=== PATIENT | male | born 1955 | race African-American/Black ===

== ENCOUNTER → 2018-01-03 | Outpatient (CLI) | payer OTHER ==
[~2018-01-03] MED LIST: ACYC-65 PO; AMLO10TA3 PO; AMOX875T PO; ASPITAB47 PO; CALC625T PO; CLR10 PO; DOCU-94 PO; GLC/500 PO; GLIP10TA9 PO; IBUP600T44 PO; LISI-461 PO; OPTIRAY 320 IV PRN; POLYSOL OP; SALI0.6510 NAE
--- NOTE | 2018-01-03 17:29 | DIAGNOSTIC IMAGING REPORT ---
CT OF THE CHEST WITH IV CONTRAST CLINICAL HISTORY: Adenopathy COMPARISON STUDY: No previous studies for comparison. TECHNIQUE: Following the IV administration of 26 mL of Optiray-320, CT of the thorax was performed from the thoracic inlet to the lung bases. Images are reviewed in the axial, sagittal, and coronal planes. IV access was difficult. The IV team was unable to obtain an adequate intravenous site. Only 26 cc of contrast was administered before infiltration. A dose lowering technique was utilized adhering to the principles of ALARA. CT DOSE: FINDINGS: Thyroid: There is an 8 mm right lobe thyroid nodule Thoracic aorta: The thoracic aorta is normal in course and caliber, noting standard 3-vessel arch anatomy. No aneurysm or dissection is seen. Pulmonary vasculature: The pulmonary trunk is normal in caliber. There are no central filling defects identified to suggest pulmonary embolus. Note that this examination was not protocoled for the evaluation of pulmonary emboli. HEART: The heart is normal in size and configuration, without pericardial effusion. Lungs and pleural spaces: There is pulmonary emphysema. There are no pleural effusions. There is no focal pulmonary consolidation. Addition to a few scattered micronodules, there is a 4 mm solid right middle lobe pulmonary nodule. This is visualized in image #[id number]. Mediastinum: There is no mediastinal lymphadenopathy. Madelyn: There is no pathologic hilar adenopathy given the limitations of the examination which approaches a nonenhanced study Axilla: Clear. Upper abdomen: Partially visualized upper abdominal viscera is within normal limits. Skeletal structures: There are no lytic or blastic osseous lesions. IMPRESSION: 1. No evidence of pathologic adenopathy 2. No evidence of focal pulmonary consolidation 3. 4 mm right middle lobe pulmonary nodule. Current recommendations indicate an optional 12 month follow-up high in a risk patient. 4. Emphysema Electronically signed by: Frerdick Mauricio M.D. 01/03/2018 5:28 PM Dictated Date/Time: 01/03/2018 5:20 PM
--- NOTE | 2018-01-03 17:29 | DIAGNOSTIC IMAGING REPORT ---
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 COMPARISON: CT chest of same day TECHNIQUE: Multiple axial CT images of the soft tissues of the neck were obtained with the use of IV contrast. A dose lowering technique was used consistent with the principals of KATHY. FINDINGS: The nasopharynx, oral pharynx and hypopharynx are patent. The epiglottis and aryepiglottic folds are unremarkable. Minimal secretions noted within piriform sinuses bilaterally, right greater than left. Glottis and subglottic airway appear unremarkable. Thyroid appears homogeneous without nodule. The parotid and submandibular glands are within normal limits. There are no pathologically enlarged lymph nodes identified within the imaged upper mediastinum. 6 x 6 mm left supraclavicular lymph node is normal in size. Normal-appearing nonenlarged right supraclavicular lymph nodes are also present. There are nonenlarged bilateral cervical chain lymph nodes which are likely physiologic. Prominent nonenlarged level 1 lymph node measures 9 x 7 mm on the left, image 146 series 6. Nonenlarged level 2 lymph nodes are present bilaterally. No pathologically enlarged lymph nodes by CT size criteria. Orbits and soft tissues are unremarkable. Mastoid air cells and middle ear cavities are clear. Paranasal sinuses are also clear. Multilevel degenerative changes about the cervical spine. Emphysema. No acute process of the imaged intracranial structures. Mild nonspecific subcutaneous stranding about the right paraspinal tissues at the level of C2-C3. IMPRESSION: 1. Nonenlarged normal-appearing supraclavicular, submandibular and cervical chain lymph nodes are likely physiologic. No pathologically enlarged lymph nodes are identified. 2. Emphysema. 3. Mild nonspecific subcutaneous stranding about the right paraspinal tissues at the level of C2-C3, possibly posttraumatic. The above report was generated using voice recognition software. It may contain grammatical, syntax or spelling errors. Electronically signed by: Diallo De La Torre M.D. 01/03/2018 5:27 PM Dictated Date/Time: 01/03/2018 5:18 PM
== END ==
LOC: C.CTS 15:49
PROVIDERS: ATTEND Family Medicine
DX: E04.1 Nontoxic single thyroid nodule (principal)

== ENCOUNTER 2019-02-25 10:59 | Inpatient (IN) ==
--- NOTE | 2019-02-25 11:40 | XRay Report ---
SINGLE VIEW CHEST CLINICAL HISTORY: Atypical chest pain. FINDINGS: 2 AP, portable, upright chest radiographs are correlated with chest CT dated 01/08/2019. The examination is degraded by portable technique and apical lordotic positioning. The cardiomediastinal silhouette is unremarkable. There is mild bibasilar atelectasis. The lungs and pleural spaces are oth erwise clear. No pneumothorax is seen. The bony thorax is grossly intact. IMPRESSION: No active disease in the chest. Electronically signed by: Enrike Hamilton M.D. 02/25/2019 11:39 AM
[2019-02-25] MEDS ORDERED: FAMOTIDINE 20 MG TAB PO ONE (12:25)
[2019-02-25] MEDS ORDERED: GI COCKTAIL ED USE PO ONE (12:25)
[2019-02-25] MEDS ORDERED: SODIUM CHLORIDE 0.9% 500 ML IV ONE (12:56)
[2019-02-25 13:26] LABS: Albumin Level 3.1 gm/dl (3.4-5.0); BUN Creatinine Ratio 16.2 (10-20); Calcium 9.2 mg/dl (8.5-10.1); Creatinine Clr Calc Pharmacy 80.2 ml/min; Est GFR (African American) 88.1; Est GFR (Non-African American) 76.1; Phosphorus 2.6 mg/dl (2.5-4.9)
[2019-02-25 13:36] LABS: Albumin Globulin Ratio 0.7 (0.9-2); Bilirubin,Total 0.6 mg/dl (0.2-1); Globulin 4.5 gm/dl (2.5-4.0); Total Protein 7.6 gm/dl (6.4-8.2)
[2019-02-25] MEDS ORDERED: Heparin IV Low Dose *NO* Bolus IV ONE (13:50)
[2019-02-25 13:55] LABS: Basophils # (auto) 0.01 K/uL (0-0.2); Basophils % (auto) 0.1 %; Eosinophils # (auto) 0.11 K/uL (0-0.5); Eosinophils % (auto) 1.5 %; Hematocrit (blood only) 41.8 % (42-52); Hemoglobin 13.6 g/dL (14.0-18.0); Immature Granulocytes # (auto) 0.02 K/uL (0.00-0.02); Immature Granulocytes % (auto) 0.3 %; Lymphocytes # (auto) 2.54 K/uL (1.2-3.4); Lymphocytes % (auto) 34.7 %; Mean Corpuscular Hemoglobin 26.4 pg (25-34); Mean Corpuscular Hgb Conc 32.5 g/dL (32-36); Mean Platelet Volume 10.4 fL (7.4-10.4); Monocytes # (auto) 0.62 K/uL (0.11-0.59); Monocytes % (auto) 8.5 %; Neutrophils # (auto) 4.03 K/uL (1.4-6.5); Neutrophils % (auto) 54.9 %; Platelet Count 158 K/uL (130-400); RDW Coefficient of Variation 14.5 % (11.5-14.5); RDW Standard Deviation 42.9 fL (36.4-46.3); Red Blood Count 5.16 M/uL (4.7-6.1); White Blood Count 7.33 K/uL (4.8-10.8)
[2019-02-25] MEDS ORDERED: HEPARIN SODIUM/DEXTROSE 25,000 UNITS/500 ML BAG IV SCH (14:00)
[2019-02-25 14:15] LABS: Potassium 4.1 mmol/L (3.5-5.1)
[2019-02-25 14:21] LABS: Beta-Hydroxybutyrate 0.76 mg/dl (0.2-2.81); Magnesium 2.2 mg/dl (1.8-2.4)
--- NOTE | 2019-02-25 14:42 | History & Physical Report ---
Date of Service February 25, 2019 Assessment & Plan (1) Non-ST elevation HI (NSTEMI): Chest pain improved s/p GI cocktail, however trop 12.0, serials pending EKG nonspecific ECHO pending Dr. Snell plans for heparin and monitoring for now with possible cath tomorrow or if sx worsen Nitro, GI cocktail PRN CBC, PRP WNL CXR neg for acute VSS (2) Hepatitis C: Pt stated on medication for this today (3) Hypertension: continue home meds (4) Diabetes: SSI PRN Holding home PO meds given possible procedure A1c pending (5) Gastric ulcer: Hx of PUD No heparin bolus given due to this (6) Hyperlipidemia: continue home meds (7) COPD (chronic obstructive pulmonary disease): continue home meds (8) DVT prophylaxis: Heparin for DVT proph History of Present Illness Primary Care Provider: RANJEET Guzman 64 y/o M c/o chest pain. Pt states he woke around 230a this morning with chest pain that was nonradiating. He massaged his chest and it resolved. He was able to go back to sleep. He woke around 430a to go to work. He had breakfast without issue. He was at work when he has return of chest pain, only it was less sharp than it had been earlier in the morning. He was working in a seated position at that time. He does not do any major activity or lifting for his job at the [employer]. 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. While he was walking there, his pain continued to worsen. He was given aspirin and nitro there and sent to the ED. Pt states he has had chest pain prior, but it was always related to reflux. Pt notes JACOB intermittently over the last month that is new for him. In the ED, pt was given pepcid and GI cocktail and pain is mostly resolved. He states he does still have a slight amount of L sided chest pain at present, but much better than prior. ED physician spoke with Dr. Snell who reviewed pt's chart and EKG. He prefers to start heparin and trend trops for now. 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 Allergies Allergy/AdvReac Type Severity Reaction Status Date / Time No Known Allergies Allergy Unverified 02/25/19 11:40 Home Medications Home Medications Medication Instructions Recorded Confirmed Type amlodipine 10 mg PO DAILY 02/25/19 02/25/19 History atorvastatin 10 mg PO HS 02/25/19 02/25/19 History chlorthalidone 50 mg PO DAILY 02/25/19 02/25/19 History elbasvir-grazoprevir [Zepatier] 1 tab PO DAILY 02/25/19 02/25/19 History fluticasone propionate [Flonase 2 spray INTRANASAL HS 02/25/19 02/25/19 History Allergy Relief] glipizide 10 mg PO BID 02/25/19 02/25/19 History glucose 4 g PO DAILY 02/25/19 02/25/19 History insulin regular human [Humulin R 1 sliding scale dose SUBCUT UD 02/25/19 02/25/19 History Regular U-100 Insuln] ketotifen fumarate 1 drp OPHTHALMIC (EYE) BID 02/25/19 02/25/19 History levalbuterol tartrate [Xopenex HFA] 2 inh INHALATION Q6H PRN 02/25/19 02/25/19 History lisinopril 40 mg PO DAILY 02/25/19 02/25/19 History metformin 1,000 mg PO BID 02/25/19 02/25/19 History montelukast 10 mg PO PM 02/25/19 02/25/19 History umeclidinium [Incruse Ellipta] 1 inh INHALATION DAILY 02/25/19 02/25/19 History Past Med/Surg History Medical History Hepatitis C (Chronic) Hypertension (Chronic) Diabetes (Chronic) Family History Other No pertinent family history in first degree relatives Social History Feels Safe at Home: Yes Smoking Status: Former smoker Smoking End Date: 12/2018 ; Hx Alcohol Use: No Hx Substance Use: No Review of Systems Review of Systems: Pertinent positives and negatives reviewed in HPI--all others negative Physical Exam Constitutional: WD/WN, vitals as above Eyes: normal visual julian by confrontation and + anicteric sclerae Neck: normal visual inspection and trachea midline Respiratory: normal respiratory effort, lungs clear to auscultation Cardiovascular: Rate/Rhythm: regular rate and regular rhythm Gastrointestinal (Abdomen): Inspection/Auscultation: abdomen not distended Percussion/Palpation: abdomen soft; abdomen nontender Musculoskeletal: Head/Neck/Chest: normocephalic and head atraumatic negative for edema, peripheral pulses intact Skin: no rashes, warm and dry Neurologic: awake; not confused Speech / Cognition: normal speech Psychiatric: A+Ox3, euthymic affect Results & Data Vital Signs (Past 12 Hours) Vital Signs Temp Pulse Pulse Resp BP BP Pulse Ox 02/25/19 13:16 68 18 167/91 H 99 02/25/19 11:29 99 02/25/19 11:28 99 02/25/19 11:26 72 99 02/25/19 11:03 36.8 C 75 20 135/115 H 99 Diagnostic Findings CXR: neg for acute ECG Additional Comments: T wave abnormalities in inferior and lateral leads Code Status & VTE Plan Code Status Full code VTE Prophylaxis Plan VTE Prophylaxis will be ordered: Yes PG Care Time/CCT Total # of Minutes Spent Total Time Spent with Patient: Total time spent is greater than 50% in coordination of care (as documented) at patient's floor/unit and/or counseling patient:
[2019-02-25 15:22] LABS: Partial Thromboplastin Ratio 1.1; Partial Thromboplastin Time 29.1 Seconds (21.0-31.0)
[2019-02-25] MEDS: HEPARIN SODIUM/DEXTROSE 25,000 UNITS/500 ML BAG IV SCH (16:00)
[2019-02-25] MEDS ORDERED: NITROGLYCERIN SL 0.4 MG/TAB TAB SL PRN (16:10)
[2019-02-25] MEDS ORDERED: GLUCOSE 10 TABS/TUBE PO PRN (16:10)
[2019-02-25] MEDS ORDERED: DEXTROSE 50% 50 ML SYRINGE IV PRN (16:10)
[2019-02-25] MEDS ORDERED: LEVALBUTEROL TARTRATE 15 GM HFA.AER.AD INH PRN (16:10)
[2019-02-25] MEDS ORDERED: ALUMINUM/MAGNESIUM SUSP 72 ML, LIDOCAINE HCL VISCOUS 2% 24 ML, BARCODE IDENTIFIER 1 EA PO PRN (16:10)
[2019-02-25] MEDS ORDERED: GLUCAGON FOR INJ 1 MG VIAL SQ PRN (16:10)
[2019-02-25] MEDS ORDERED: ONDANSETRON INJ 2 MG/ML 2 ML VIAL IV PRN (16:10)
[2019-02-25] MEDS ORDERED: ACETAMINOPHEN 325 MG TAB PO PRN (16:10)
[2019-02-25] MEDS ORDERED: CARBOHYDRATES FOR HYPOGLYCEMIA PO PRN (16:10)
[2019-02-25] MEDS ORDERED: GLUCOSE 40% GEL 15 GM TUBE PO PRN (16:10)
[2019-02-25] MEDS ORDERED: MAGNESIUM HYDROXIDE SUSP 30 ML UDC PO PRN (16:10)
[2019-02-25] MEDS ORDERED: Heparin IV Standard *NO* Bolus IV SCH (16:30)
[2019-02-25] MEDS: INSULIN ASPART 100 UNITS/ML 3 ML PEN SC SCH ×2 (17:03→20:54)
[2019-02-25] MEDS ORDERED: METOPROLOL TARTRATE 1 MG/ML VIAL IV PRN (17:25)
--- NOTE | 2019-02-25 20:37 | Emergency Department Note ---
Entered by Lisa Cerna acting as a scribe for Adrian Pritchard MD History of Present Illness General Chief complaint: Chest Pain Time Seen by Provider: 02/25/19 12:02 Source: patient History of Present Illness Onset (ago): hour(s) (last night ) Location: chest (left-sided) Severity: similar to prior episodes Pain Consistency: + intermittent Maximum Pain Intensity: 4 Associated symptoms: + shortness of breath; no fever/chills, no nausea/vomiting and no other (negative diarrhea; negative congestion) The patient is a 64 year old male who presents to the Emergency Room with complaints of intermittent left-sided chest pain that began last night. The patient states that he had an episode of this pain last night but states that this resolved on its own before he had another episode at about 0900 this morning, about 3 hours prior to arrival. The patient states that after the episode began this morning he went to medical and was given medicine, but states that he still has pain. He reports a cough at baseline. The patient denies fevers, chills, congestion, nausea, vomiting, and diarrhea. He reports that he intermittently has similar episodes of pain with both exertion and rest, but states that he typically has shortness of breath during these episodes. The patient denies a history of an NH. He states that he has a history of reflux, but states that he is unsure if his symptoms feel similar to prior episodes of this. Home Medications Home Medications Medication Instructions Recorded Confirmed Type amlodipine 10 mg PO DAILY 02/25/19 02/25/19 History atorvastatin 10 mg PO HS 02/25/19 02/25/19 History chlorthalidone 50 mg PO DAILY 02/25/19 02/25/19 History elbasvir-grazoprevir [Zepatier] 1 tab PO DAILY 02/25/19 02/25/19 History fluticasone propionate [Flonase 2 spray INTRANASAL HS 02/25/19 02/25/19 History Allergy Relief] glipizide 10 mg PO BID 02/25/19 02/25/19 History glucose 4 g PO DAILY 02/25/19 02/25/19 History insulin regular human [Humulin R 1 sliding scale dose SUBCUT UD 02/25/19 02/25/19 History Regular U-100 Insuln] ketotifen fumarate 1 drp OPHTHALMIC (EYE) BID 02/25/19 02/25/19 History levalbuterol tartrate [Xopenex HFA] 2 inh INHALATION Q6H PRN 02/25/19 02/25/19 History lisinopril 40 mg PO DAILY 02/25/19 02/25/19 History metformin 1,000 mg PO BID 02/25/19 02/25/19 History montelukast 10 mg PO PM 02/25/19 02/25/19 History umeclidinium [Incruse Ellipta] 1 inh INHALATION DAILY 02/25/19 02/25/19 History Allergies Allergy/AdvReac Type Severity Reaction Status Date / Time No Known Allergies Allergy Unverified 02/25/19 11:40 Past Med/Surg History Medical History Hepatitis C (Chronic) Hypertension (Chronic) Diabetes (Chronic) Family History Other No pertinent family history in first degree relatives Social History Preferred Language: Vincentian Communication Ability: Effective [employer] Adviser Required: No Beliefs That Will Affect Care: None Current Living Situation: Other Current Living Situation Comment: [facility] Feels Safe at Home: Yes Smoking Status: Former smoker Hx Alcohol Use: No Hx Substance Use: No Review of Systems See HPI for pertinent positives & negatives. and A total of 10 systems reviewed and were otherwise negative Physical Exam Vital Signs Vital Signs - 24 hr 02/25/19 11:03 02/25/19 11:26 02/25/19 11:28 Temperature 36.8 C Temperature Source Oral Sepsis Recent Fever Within 48 Hours No Sepsis New/Unexplained Change in Mental Status No Sepsis Action Taken by Nursing No Action Required Pulse Rate 75 72 Pulse Rate [Right Finger] Pulse Rhythm Regular Pulse Rhythm [Right Finger] Pulse Strength Normal Pulse Strength [Right Finger] Respiratory Rate 20 Respiratory Effort / Characteristics Non-Labored Respiratory Depth Normal Respiratory Pattern Blood Pressure 135/115 H Blood Pressure [Right Arm] Blood Pressure Mean 121 Blood Pressure Mean [Right Arm] Blood Pressure Position Lying Blood Pressure Position [Right Arm] Pulse Oximetry 99 99 99 Oxygen Delivery Method Room Air Room Air Room Air 02/25/19 11:29 02/25/19 13:16 Temperature Temperature Source Sepsis Recent Fever Within 48 Hours Sepsis New/Unexplained Change in Mental Status Sepsis Action Taken by Nursing Pulse Rate Pulse Rate [Right Finger] 68 Pulse Rhythm Pulse Rhythm [Right Finger] Regular Pulse Strength Pulse Strength [Right Finger] Normal Respiratory Rate 18 Respiratory Effort / Characteristics Non-Labored Respiratory Depth Normal Respiratory Pattern Regular Blood Pressure Blood Pressure [Right Arm] 167/91 H Blood Pressure Mean Blood Pressure Mean [Right Arm] 116 Blood Pressure Position Blood Pressure Position [Right Arm] Lying Pulse Oximetry 99 99 Oxygen Delivery Method Room Air Room Air GENERAL: Awake, alert, fatigued-appearing, in no distress HENT: Normocephalic, atraumatic. Oropharynx with dry mucous membranes and otherwise unremarkable. EYES: Normal conjunctiva. Sclera non-icteric. NECK: Supple. No nuchal rigidity. FROM. No JVD. RESPIRATORY: CTAB. CARDIAC: Regular rate, normal rhythm. Extremities warm and well perfused. Pulses equal. ABDOMEN: Mild epigastric discomfort without discrete tenderness. Soft, non- distended. No rebound or guarding. No masses. RECTAL: Deferred. MUSCULOSKELETAL: Chest examination reveals no tenderness. The back is symmetrical on inspection without obvious abnormality. There is no CVA tenderness to palpation. No joint edema. LOWER EXTREMITIES: Calves are equal size bilaterally and non-tender. No edema. No discoloration. NEURO: Normal sensorium. No sensory or motor deficits noted. SKIN: No rash or jaundice noted. Course 1219: Past medical records reviewed. The patient was evaluated in room C3. A complete history and physical exam was performed. 1346: Upon reevaluation, the patient states that he is feeling better and rates his pain at a 2/10 currently. I updated him on all results. 1400: [facility] agrees with the plan for a Heparin drip and states that the patient will likely need catheterized tomorrow but if his symptoms recur he may need to be catheterized earlier. 1405: I discussed the case with Dr. [facility] who accepts the patient for further evaluation. Consultations Consultation #1: I [facility] the [facility] agrees with the plan for a Heparin drip and states that the patient will likely need catheterized tomorrow but if his symptoms recur he may need to be catheterized earlier. Time: 14:00 Consultation #2: I discussed the case with Dr[facility] who accepts the patient for further evaluation. Time: 14:05 Administered Medications Atorvastatin Calcium (Lipitor) 10 mg PO HS DAYAMI Stop: 03/27/19 20:59 Last Admin: 02/25/19 20:53 Dose: 10 mg Documented by: [id number] Fluticasone Propionate (Flonase) 2 sprays NA HS DAYAMI Stop: 03/27/19 20:59 Last Admin: 02/25/19 20:53 Dose: 2 sprays Documented by: [id number] Heparin Sodium/Dextrose (Heparin Sodium/Dextrose) 25,000 units in 500 mls @ 26 mls/hr IV .[id number] DAYAMI; Protocol Stop: 03/27/19 16:09 Last Titration: 02/25/19 19:16 Dose: 1,300 units/hr, 26 mls/hr Documented by: [id number] Cosigned by: [id number] Admin: 02/25/19 16:00 Dose: 1,300 units/hr, 26 mls/hr Documented by: [id number] Cosigned by: [id number] Insulin Aspart (Novolog Flexpen) 0 units SC ACHS DAYAMI Stop: 03/27/19 16:29 Last Admin: 02/25/19 20:54 Dose: 4 units Documented by: [id number] Cosigned by: [id number] Admin: 02/25/19 17:03 Dose: 9 units Documented by: [id number] Cosigned by: [id number] Metoprolol Tartrate (Lopressor) 5 mg IV Q6 PRN PRN Reason: SYS BP GREATER THAN 170 Stop: 03/27/19 17:59 Last Admin: 02/25/19 17:38 Dose: 5 mg Documented by: [id number] Montelukast Sodium (Singulair) 10 mg PO PM DAYAMI Stop: 03/27/19 20:59 Last Admin: 02/25/19 20:53 Dose: 10 mg Documented by: [id number] Discontinued Medications Al Hydrox/Mg Hydrox/Simethicone () 1 dose PO ONE ONE Stop: 02/25/19 12:26 Last Admin: 02/25/19 13:23 Dose: 1 dose Documented by: [id number] Famotidine (Pepcid) 20 mg PO NOW ONE Stop: 02/25/19 12:26 Last Admin: 02/25/19 13:23 Dose: 20 mg Documented by: [id number] Sodium Chloride (Nss) 500 mls @ 999 mls/hr IV .Q31M ONE Stop: 02/25/19 13:26 Last Infusion: 02/25/19 13:36 Dose: 0 mls/hr Documented by: [id number] Admin: 02/25/19 13:24 Dose: 999 mls/hr Documented by: [id number] Heparin Sodium/Dextrose (Heparin Sodium/Dextrose) 25,000 units in 500 mls @ 19 mls/hr IV .Q24H DAYAMI; Protocol Stop: 03/27/19 13:59 Last Titration: 02/25/19 17:20 Dose: 0 units/hr, 0 mls/hr Documented by: [id number] Cosigned by: [id number] Titration: 02/25/19 16:48 Dose: 1,300 units/hr, 26 mls/hr Documented by: [id number] Cosigned by: [id number] Titration: 02/25/19 16:09 Dose: 950 units/hr, 19 mls/hr Documented by: [id number] Cosigned by: [id number] Admin: 02/25/19 15:47 Dose: 950 units/hr, 19 mls/hr Documented by: [id number] Cosigned by: [id number] Medical Decision Making Differential Diagnosis Differential diagnoses includes but is not limited to acute coronary syndrome, myocardial infarction, pericarditis, pulmonary embolus, aortic dissection, pneumonia, pneumothorax, musculoskeletal, shingles, esophageal. Medical Records Attestation: I reviewed the patient's medical records. Home Medications Current Medication List: was personally reviewed by me Laboratory Data Attestation: I reviewed the patient's lab results. Result diagrams: 02/25/19 13:43 02/25/19 13:43 Lab Results 02/25/19 02/25/19 02/25/19 Range/Units 12:49 12:49 13:43 WBC Cancelled 7.33 RBC Cancelled 5.16 Hgb Cancelled 13.6 L Hct Cancelled 41.8 L MCV Cancelled 81.0 MCH Cancelled 26.4 MCHC Cancelled 32.5 RDW Std Deviation Cancelled 42.9 RDW Coeff of Aminta Cancelled 14.5 Plt Count Cancelled 158 MPV Cancelled 10.4 Immature Gran % (Auto) Cancelled 0.3 Neut % (Auto) Cancelled 54.9 Lymph % (Auto) Cancelled 34.7 [place] % (Auto) Cancelled 8.5 Eos % (Auto) Cancelled 1.5 Baso % (Auto) Cancelled 0.1 Immature Gran # (Auto) Cancelled 0.02 Neut # (Auto) Cancelled 4.03 Lymph # (Auto) Cancelled 2.54 [place] # (Auto) Cancelled 0.62 H Eos # (Auto) Cancelled 0.11 Baso # (Auto) Cancelled 0.01 Absolute Nucleated RBC Cancelled Nucleated RBC % (auto) Cancelled Neutrophils % (Manual) Cancelled Band Neutrophils % Cancelled Lymphocytes % (Manual) Cancelled Prolymphocyte % Cancelled Reactive Lymphs % (Man) Cancelled Monocytes % (Manual) Cancelled Eosinophils % (Manual) Cancelled Basophils % (Manual) Cancelled Metamyelocytes % (Man) Cancelled Myelocytes % (Man) Cancelled Promyelocytes % (Man) Cancelled Blast Cells % (Manual) Cancelled Plasma Cell % (Manual) Cancelled Other Cells % Cancelled Nucleated RBC % Cancelled Neutrophils # (Manual) Cancelled Band Neutrophils # Cancelled Total Absolute Neuts Cancelled Lymphocytes # (Manual) Cancelled Prolymphocyte # Cancelled Reactive Lymphs # Cancelled Total Abs Lymphocytes Cancelled Monocytes # (Manual) Cancelled Eosinophils # (Manual) Cancelled Basophils # (Manual) Cancelled Metamyelocytes # (Man) Cancelled Myelocytes # (Manual) Cancelled Promyelocytes # (Man) Cancelled Blast Cells # (Man) Cancelled Plasma Cell # (Manual) Cancelled Other Cells # Cancelled Nucleated RBCs # (Man) Cancelled Hypersegmented Neuts Cancelled Hyposegmented Neuts Cancelled Hypogranular Neuts Cancelled Large Granular Lymphs Cancelled # Lrg Granular Lymphs Cancelled Hairy Cells Cancelled Smudge Cells Cancelled Toxic Granulation Cancelled Toxic Vacuolation Cancelled Dohle Bodies Cancelled Aisha Rods Cancelled Platelet Estimate Cancelled Hypogranular Platelets Cancelled Clumped Platelets Cancelled Giant Platelets Cancelled Platelet Satelliting Cancelled RBC Morphology Cancelled Polychromasia Cancelled Hypochromasia Cancelled Poikilocytosis Cancelled Basophilic Stippling Cancelled Anisocytosis Cancelled Microcytosis Cancelled Macrocytosis Cancelled Spherocytes Cancelled Pappenheimer Bodies Cancelled Sickle Cells Cancelled Target Cells Cancelled Tear Drop Cells Cancelled Ovalocytes Cancelled Stomatocytes Cancelled [place] Bodies Cancelled Echinocytes Cancelled Acanthocytes (Spur) Cancelled Rouleaux Cancelled RBC Agglutinates Cancelled Schistocytes Cancelled RBC Morph Comment Cancelled Sezary Cell Cancelled APTT (21.0-31.0) Seconds PTT Ratio Sodium 138 (136-145) mmol/L Potassium (3.5-5.1) mmol/L Chloride 107 (98-107) mmol/L Carbon Dioxide 25 (21-32) mmol/L Anion Gap 7.0 (3-11) BUN 17 (7-18) mg/dl Creatinine 1.04 (0.6-1.4) mg/dl Est Cr Clr Drug Dosing 80.2 ml/min Est GFR ( Amer) 88.1 Est GFR (Non-Af Amer) 76.1 BUN/Creatinine Ratio 16.2 (10-20) Glucose 365 H* (70-99) mg/dl Calcium 9.2 (8.5-10.1) mg/dl Phosphorus 2.6 (2.5-4.9) mg/dl Magnesium (1.8-2.4) mg/dl Total Bilirubin 0.6 (0.2-1) mg/dl AST (15-37) U/L ALT 77 (12-78) U/L Alkaline Phosphatase 124 H (45-117) U/L Troponin I 12.000 H* (0-0.045) ng/ml Total Protein 7.6 (6.4-8.2) gm/dl Albumin 3.1 L (3.4-5.0) gm/dl Globulin 4.5 H (2.5-4.0) gm/dl Albumin/Globulin Ratio 0.7 L (0.9-2) Lipase 158 (73-393) U/L Beta-Hydroxybutyric Acd (0.2-2.81) mg/dl 02/25/19 02/25/19 Range/Units 13:43 13:43 WBC RBC Hgb Hct MCV MCH MCHC RDW Std Deviation RDW Coeff of Aminta Plt Count MPV Immature Gran % (Auto) Neut % (Auto) Lymph % (Auto) [place] % (Auto) Eos % (Auto) Baso % (Auto) Immature Gran # (Auto) Neut # (Auto) Lymph # (Auto) [place] # (Auto) Eos # (Auto) Baso # (Auto) Absolute Nucleated RBC Nucleated RBC % (auto) Neutrophils % (Manual) Band Neutrophils % Lymphocytes % (Manual) Prolymphocyte % Reactive Lymphs % (Man) Monocytes % (Manual) Eosinophils % (Manual) Basophils % (Manual) Metamyelocytes % (Man) Myelocytes % (Man) Promyelocytes % (Man) Blast Cells % (Manual) Plasma Cell % (Manual) Other Cells % Nucleated RBC % Neutrophils # (Manual) Band Neutrophils # Total Absolute Neuts Lymphocytes # (Manual) Prolymphocyte # Reactive Lymphs # Total Abs Lymphocytes Monocytes # (Manual) Eosinophils # (Manual) Basophils # (Manual) Metamyelocytes # (Man) Myelocytes # (Manual) Promyelocytes # (Man) Blast Cells # (Man) Plasma Cell # (Manual) Other Cells # Nucleated RBCs # (Man) Hypersegmented Neuts Hyposegmented Neuts Hypogranular Neuts Large Granular Lymphs # Lrg Granular Lymphs Hairy Cells Smudge Cells Toxic Granulation Toxic Vacuolation Dohle Bodies Aisha Rods Platelet Estimate Hypogranular Platelets Clumped Platelets Giant Platelets Platelet Satelliting RBC Morphology Polychromasia Hypochromasia Poikilocytosis Basophilic Stippling Anisocytosis Microcytosis Macrocytosis Spherocytes Pappenheimer Bodies Sickle Cells Target Cells Tear Drop Cells Ovalocytes Stomatocytes [place] Bodies Echinocytes Acanthocytes (Spur) Rouleaux RBC Agglutinates Schistocytes RBC Morph Comment Sezary Cell APTT 29.1 (21.0-31.0) Seconds PTT Ratio 1.1 Sodium (136-145) mmol/L Potassium 4.1 (3.5-5.1) mmol/L Chloride (98-107) mmol/L Carbon Dioxide (21-32) mmol/L Anion Gap (3-11) BUN (7-18) mg/dl Creatinine (0.6-1.4) mg/dl Est Cr Clr Drug Dosing ml/min Est GFR ( Amer) Est GFR (Non-Af Amer) BUN/Creatinine Ratio (10-20) Glucose (70-99) mg/dl Calcium (8.5-10.1) mg/dl Phosphorus (2.5-4.9) mg/dl Magnesium 2.2 (1.8-2.4) mg/dl Total Bilirubin (0.2-1) mg/dl AST 73 H (15-37) U/L ALT (12-78) U/L Alkaline Phosphatase (45-117) U/L Troponin I (0-0.045) ng/ml Total Protein (6.4-8.2) gm/dl Albumin (3.4-5.0) gm/dl Globulin (2.5-4.0) gm/dl Albumin/Globulin Ratio (0.9-2) Lipase (73-393) U/L Beta-Hydroxybutyric Acd 0.76 (0.2-2.81) mg/dl Imaging Data Radiologist's Impression: Radiology results as stated below per my review and the radiologist's interpretation: SINGLE VIEW CHEST CLINICAL HISTORY: Atypical chest pain. FINDINGS: 2 AP, portable, upright chest radiographs are correlated with chest CT dated 01/08/2019. The examination is degraded by portable technique and apical lordotic positioning. The cardiomediastinal silhouette is unremarkable. There is mild bibasilar atelectasis. The lungs and pleural spaces are otherwise clear. No pneumothorax is seen. The bony thorax is grossly intact. IMPRESSION: No active disease in the chest. Electronically signed by: Enrike Hamilton M.D. 02/25/2019 11:39 AM ECG Data Attestation: I personally reviewed and interpreted this ECG as follows: Indication: chest pain Rate (beats per minute): 76 Rhythm: sinus rhythm Findings: + other (non-specific T wave abnormalities that are more pronounced from piror; baseline artifact ) and + PAC; no ST elevation (no overt ST elevation) Additional Comments: Repeat ECG: Sinus rhythm with a rate of 73. Normal axis. Non-specific T wave abnormalities. No overt acute ischemia. Blood Pressure Blood Pressure Findings: Elevated blood pressure Blood Pressure Disposition: further management by hospitalist CRYSTAL Dumas The patient is a pleasant 64-year-old gentleman with a past medical history of COPD, IDDM 2, hypertension, gastric ulcer who presents emergency department with substernal chest pain that began today at 9 AM in the setting of having similar episode yesterday per hpi. Patient reports his symptoms occurred this morning and that he began to have increasing pain when he was walking to the [facility]. Patient was given aspirin nitroglycerin and transferred to the emergency department. The patient reports he has had new dyspnea on exertion over the past month and every now and then will have a chest pain associated with this that would improve with rest although he does describe that this would usually be walking to the cafeteria to eat. On arrival the patient is no acute distress, afebrile stable vital signs. He has mild epigastric discomfort without discrete tenderness. EKG demonstrates nonspecific T wave abnormalities that are more pronounced compared to his EKG in 2016. There is meandering artifact in the patient's baseline in the inferior leads and there is the possibility of slight 0.5 mm concave up elevations however upon repeat EKG these appear less pronounced. Chest x-ray negative for acute process. The patient reported 4-5/10 pain which was improved though still present after receiving aspirin and nitroglycerin prior to arrival. Given the patient's history of peptic ulcer we did trial Pepcid and GI cocktail which subsequently improved the patient's pain further and he reported it was barely present. However subsequent initial troponin was elevated at 12 which given the patient's sym ptoms consistent with an NSTEMI, in the setting of possible history of unstable angina. WBC within normal limits. H/H 13.6/41.8 without priors for comparison. Platelets within normal limits. Chemistry without acidosis. Glucose is 365 without significant elevation in ketones. Electrolytes and LFTs otherwise unremarkable. Case was [place], [facility] [place] who agrees with plan for heparin and admission for likely catheterization in the morning, given the patient's symptoms have improved. If patient symptoms become recurrent and worsen then catheterization may need to be performed emergently. The patient was updated regarding his findings and he is agreeable for plan for admission. Case was discussed with [place]es[place], [facility] [place], who will evaluate the patient for admission. Impression & Plan Non-ST elevation NH (NSTEMI), Substernal chest pain Critical Care Time Critical Care Time: Yes Total Critical Care Time: 45 I have personally spent greater than 45 minutes of critical care time in the direct management of this patient. This includes bedside care, interpretation of diagnostic studies, and testing, discussion with consultants, patient, and family members, and other required patient management activities. This 45 minutes is in excess of all separately billable procedures. Discharge Plan Visit Data *Final* Discharge Date/Time: 02/25/19 16:20 Chief Complaint: Chest Pain ED Provider: Adrian Pritchard Discharge Problem: Non-ST elevation NH (NSTEMI), Substernal chest pain Patient Disposition: Admitted As Inpatient Discharge Instructions Interventions: ED Discharge Assessment Last Done: 02/25/19 16:20 The scribe's documentation has been prepared under my direction and personally reviewed by me in its entirety. I confirm that the note above accurately reflects all work, treatment, procedures, and medical decision making performed by me.
[2019-02-25] MEDS: FLUTICASONE PROPIONATE NA SPR 16 GM BTL SCH (20:53)
[2019-02-25] MEDS: MONTELUKAST SODIUM 10 MG TABLET PO SCH (20:53)
[2019-02-25] MEDS ORDERED: ATORVASTATIN 10 MG TAB PO SCH (21:00)
[2019-02-25 23:04] LABS: Partial Thromboplastin Time 54.4 Seconds (21.0-31.0)
[2019-02-26 07:56] LABS: Basophils # (auto) 0.02 K/uL (0-0.2); Basophils % (auto) 0.3 %; Eosinophils # (auto) 0.12 K/uL (0-0.5); Eosinophils % (auto) 1.5 %; Hematocrit (blood only) 42.8 % (42-52); Hemoglobin 13.9 g/dL (14.0-18.0); Immature Granulocytes # (auto) 0.02 K/uL (0.00-0.02); Immature Granulocytes % (auto) 0.3 %; Lymphocytes # (auto) 3.02 K/uL (1.2-3.4); Mean Corpuscular Hemoglobin 26.1 pg (25-34); Mean Corpuscular Hgb Conc 32.5 g/dL (32-36); Mean Corpuscular Volume 80.3 fL (80-100); Mean Platelet Volume 10.8 fL (7.4-10.4); Monocytes # (auto) 0.81 K/uL (0.11-0.59); Monocytes % (auto) 10.2 %; Neutrophils # (auto) 3.96 K/uL (1.4-6.5); Neutrophils % (auto) 49.7 %; Platelet Count 150 K/uL (130-400); RDW Coefficient of Variation 14.5 % (11.5-14.5); RDW Standard Deviation 42.3 fL (36.4-46.3); Red Blood Count 5.33 M/uL (4.7-6.1); White Blood Count 7.95 K/uL (4.8-10.8)
[2019-02-26 08:11] LABS: BUN Creatinine Ratio 15.5 (10-20); Creatinine Clr Calc Pharmacy 102.9 ml/min; Est GFR (African American) 112.5; Est GFR (Non-African American) 97.1; Potassium 4.1 mmol/L (3.5-5.1)
[2019-02-26 08:15] LABS: Partial Thromboplastin Ratio 2.1
[2019-02-26] MEDS: lisinopriL 40 MG TAB PO SCH (08:56)
[2019-02-26] MEDS: AMLODIPINE BESYLATE 5 MG TAB PO SCH (08:56)
[2019-02-26] MEDS: CHLORTHALIDONE 25 MG TAB PO SCH (08:56)
[2019-02-26] MEDS: INSULIN ASPART 100 UNITS/ML 3 ML PEN SC SCH ×4 (08:57→20:42)
[2019-02-26] MEDS: GLUCOSE 10 TABS/TUBE PO SCH (09:00)
[2019-02-26 09:52] LABS: Estimated Average Glucose 206 mg/dl; Hemoglobin A1C 8.8 % (4.5-5.6)
--- NOTE | 2019-02-26 11:28 | Cardiology Consultation ---
Date of Consultation February 26, 2019 Assessment & Plan (1) Chest pain: Although chest pain has not been consistent, character of it is suggestive of myocardial ischemia. We will need to further investigate. With his elevated troponin need to exclude coronary disease though other possibilities such as pericarditis exist. (2) Elevated troponin: His troponin is significantly elevated and although the time course is not entirely consistent with a Myocardial infarction it is likely a non-ST segment elevation Myocardial infarction. History of Present Illness Reason for Consultation: Chest pain, elevated troponin Attending Physician: Jose Welch History of Present Illness This is a 64-year-old incarcerated gentleman who has risk factors for heart disease including diabetes mellitus and hypercholesterolemia however has not had any symptoms suggestive of coronary artery disease until recently. He describes about a 2-month history of dyspnea on exertion but no exertional chest discomfort. In the coil cutter hours of February 25, 2019 he awoke at around 2:30 in the morning with substernal chest discomfort with radiation to his left arm. 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 In the emergency room he continued to have the chest discomfort (I believe the left arm discomfort had resolved shortly after the onset of it in the coil cutter hours). The discomfort however relieved sometime after admission in the afternoon on February 25, 2019, I am not sure exactly when, but he had been treated with intravenous heparin in the emergency room as well as platelet inhibitors. At the time of my evaluation today he was pain-free. He had no other cardiovascular complaints such as lightheadedness, dizziness, palpitations. He has had significant hypertension during this hospitalization. Allergies Allergy/AdvReac Type Severity Reaction Status Date / Time No Known Allergies Allergy Unverified 02/25/19 11:40 Home Medications Home Medications Medication Instructions Recorded Confirmed Type Humulin R Regular U-100 Insuln 1 sliding scale dose SUBCUT UD 02/25/19 02/25/19 History Incruse Ellipta 1 inh INHALATION DAILY 02/25/19 02/25/19 History Zepatier 1 tab PO DAILY 02/25/19 02/25/19 History amlodipine 10 mg PO DAILY 02/25/19 02/25/19 History chlorthalidone 50 mg PO DAILY 02/25/19 02/25/19 History fluticasone propionate [Flonase 2 spray INTRANASAL HS 02/25/19 02/25/19 History Allergy Relief] glipizide 10 mg PO BID 02/25/19 02/25/19 History glucose 4 g PO DAILY 02/25/19 02/25/19 History ketotifen fumarate 1 drp OPHTHALMIC (EYE) BID 02/25/19 02/25/19 History levalbuterol tartrate [Xopenex HFA] 2 inh INHALATION Q6H PRN 02/25/19 02/25/19 History lisinopril 40 mg PO DAILY 02/25/19 02/25/19 History metformin 1,000 mg PO BID 02/25/19 02/25/19 History montelukast 10 mg PO PM 02/25/19 02/25/19 History aspirin [Ecotrin Low Strength] 81 mg PO QAM #0 tab 02/27/19 Rx clopidogrel 75 mg PO QAM #30 tab 02/27/19 Rx metoprolol succinate 50 mg PO QAM #30 tab 02/27/19 Rx nitroglycerin [Nitrostat] 0.4 mg SUBLINGUAL UD PRN #0 tab 02/27/19 Rx rosuvastatin 10 mg PO HS #30 tab 02/27/19 Rx Patient History Medical History Hepatitis C (Chronic) Hypertension (Chronic) Diabetes (Chronic) Family History Other No pertinent family history in first degree relatives Social History Preferred Language: Romanian Communication Ability: Effective 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 HEENT: Unremarkable Neck: No jugular venous distention, carotid pulses are normal and equal bilaterally without bruits. Pulmonary: Clear to auscultation bilaterally. Cardiac: Regular rhythm with no murmur, gallop or rub. Abdomen: Soft, nontender with normal bowel sounds. Extremities: No edema. Distal pulses intact. Neurologic: No focal findings. Gait is steady. Skin: No rash, ecchymoses or petechiae. Results & Data Vital Signs (Past 12 Hours) Vital Signs Temp Pulse Resp BP BP Pulse Ox 02/26/19 07:39 36.8 C 62 16 176/92 H 97 02/26/19 04:00 36.8 C 63 18 166/86 H 96 02/26/19 00:00 36.9 C 64 18 155/83 H 98 Laboratory Results His troponin has been elevated in a stable manner. Diagnostic Findings Electrocardiography done several times in the emergency room and this morning all show sinus rhythm with some diffuse ST elevation, the ST elevation is present in the inferior and the lateral precordial leads, it is mild but present. It does not seem to have evolved. There are no T wave abnormalities there has been no progression of T wave abnormalities. Telemetry: Sinus rhythm, rates in the 60s and 70s. No significant arrhythmia. PG Care Time/CCT Total # of Minutes Spent Total Time Spent with Patient: Total time spent is greater than 50% in coordination of care (as documented) at patient's floor/unit and/or counseling patient:
[2019-02-26] MEDS: HEPARIN SODIUM/DEXTROSE 25,000 UNITS/500 ML BAG IV SCH (11:31)
[2019-02-26] MEDS: ZEPATIER PO SCH (12:00)
[2019-02-26] MEDS: UMECLIDINIUM BROMIDE INH SCH (12:00)
[2019-02-26] MEDS ORDERED: MIDAZOLAM HCL 1 MG/ML 2ML VIAL ONE (12:27)
[2019-02-26] MEDS ORDERED: fentaNYL citrate 100 MCG/2 ML VIAL ONE (12:27)
[2019-02-26] MEDS ORDERED: HEPARIN (PORCINE) 1000 UNIT/ML 10 ML (CATH LAB USE ONLY) ONE (12:27)
--- NOTE | 2019-02-26 12:40 | Pre Anesthesia Assessment ---
Date of Service February 26, 2019 Pre Sedation Assessment Vital Signs Temp Pulse Pulse Resp BP BP BP 02/26/19 11:27 97.9 F 66 16 143/82 H 02/26/19 07:39 98.2 F 62 16 176/92 H 02/26/19 04:00 98.2 F 63 18 166/86 H 02/26/19 00:00 98.4 F 64 18 155/83 H 02/25/19 18:51 98.1 F 94 H 18 179/96 H 02/25/19 17:38 82 184/79 H 02/25/19 16:20 99.5 F 82 20 189/92 H 02/25/19 16:17 97.9 F 66 18 205/100 H 02/25/19 15:23 67 20 189/95 H 02/25/19 13:16 68 18 167/91 H Pulse Ox 02/26/19 11:27 97 02/26/19 07:39 97 02/26/19 04:00 96 02/26/19 00:00 98 02/25/19 18:51 96 02/25/19 17:38 02/25/19 16:20 90 02/25/19 16:17 97 02/25/19 15:23 100 02/25/19 13:16 99 Cardiovascular RRR, no murmur, no edema Respiratory normal respiratory effort, lungs clear to auscultation Pre-Sedation Airway Assessment Smoking Status: Former smoker Hx Sleep Apnea: No Hx Difficult Intubation: No Short, Thick Neck: No Thyromental Distance: > or= 3.5 Finger Breadths Mallampati Class: III ASA: ASA3 Procedure Planning Contraindications for Sedation: none Current Medications Reviewed: Yes Notes The planned sedation has been discussed with the patient. Informed Consent was obtained. I have identified the patient, determined the appropriateness of sedation and have assessed the patient immediately prior to the procedure. All medicine(s) and interventions are by my order.
[2019-02-26] MEDS ORDERED: NiCARDipine HCL INJ 2.5 MG/ML 10 ML AMP ONE (12:42)
[2019-02-26] MEDS ORDERED: CLOPIDOGREL BISULFATE 300 MG TAB ONE (13:32)
[2019-02-26] MEDS ORDERED: DOPamine 400MG / 250ML D5W (CATH LAB USE ONLY) ONE (13:32)
--- NOTE | 2019-02-26 13:37 | Cardiac Catheterization ---
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 Cardiac Status Clinical evaluation leading to the procedure CAD Presenation: Non STEMI Anginal Classification: CCS IV Heart Failure: No Cardiogenic Shock within 24 Hours: No Cardiac Arrest within 24 Hours: No Imaging Studies Past 6 Months: Yes Stress Studies Past 6 Months: No Diagnostic Physicians Name: Ney Odom MD Status: Elective Closure Device Percutaneous Entry Location: Radial Closure Device: Radial Band Recommendations: PCI without planned CABG PCI Indication: PCI for high risk Non-NAHED Lesion Segment Name: distal circumflex Culprit Artery: Yes Stenosis Prior to Rx (%): 100 Chronic Total Occlusion: No IVUS: No FFR: No Pre-Procedure PRADEEP Flow: 0 Previously Treated Lesion: No Lesion Complexity: Non-High/Non-C Lesion Length (mm): 15 Thrombus Present: Yes Bifurcation Lesion: No Guidewire Across Lesion: Stenosis Post-Procedure (%): 0 Post-Procedure PRADEEP Flow: 3 Devices(s) Deployed: Yes Yes Intraprocedure Events Significant Disection: No Perforation: No Cardiac Cath Procedure Full Procedure Date February 26, 2019 Pre-Procedure Diagnosis Pre-Procedure Diagnosis: Non STEMI AUC Score AUC Score: 8 Post-Procedure Diagnosis Post-Procedure Diagnosis: Severe CAD, Successful PCI and Normal Intracardiac Pressures Procedure(s) Performed Procedure(s) Performed: Coronary Angiography, Left Heart Cath, PTCA and Drug Eluting Stent Gear Lapper Ney Odom MD Faith Doctor(s) Alexsander Estimated Blood Loss Estimated Blood Loss: 15 Medication(s) Medication(s): Clopidogrel, Dopamine, Fentanyl, Heparin, Lidocaine 1%, Nicardipine, Nitroglycerin and Versed Summary of Findings Indication: High risk NSTEMI Access: 6 Fr right radial artery Catheters: Nikita, JL 3.5, JL 3.5 guide Findings: LM -moderate caliber vessel LAD -moderate caliber vessel, 20 to 30% mid segment disease, distal luminal irregularities as wraps around apex. Small to moderate first diagonal with 95+% proximal stenosis. Circumflex -20 to 30% ostial stenosis, mid segment luminal irregularities, luminal irregularities in moderate caliber OM 2. Distal circumflex with 100% acute on chronic occlusion, partial filling of distal vessel retrograde via collaterals. RCA -moderate caliber vessel, dominant, 20 to 30% diffuse proximal mid disease, mid and distal irregularities. Small right PDA with mild diffuse disease. LVEDP - 1 -- PCI -- Antithrombotic therapy: Heparin, clopidogrel Procedure: During procedure after vasodilators became hypotensive with systolic blood pressures in the 60s. Received IV fluid bolus and was on low-dose dopamine temporarily. Left main cannulated with JL 3.5 guide Make Up Artist 50 wire passed across lesion into distal vessel Distal circumflex lesion predilated with 2.0 compliant balloon Dilated lesion stented with 2.25 x 18 mm [place] drug-eluting Stent post-dilated with 2.25 noncompliant balloon IC vasodilators administered for spasm Post procedure PRADEEP 3 flow, stent well expanded with minimal residual stenosis and no apparent cardiac complications. Wire repositioned into distal first diagonal Proximal first diagonal dilated with 2.0 balloon Mild residual stenosis with PRADEEP-3 flow and no apparent dissection. Vessel too small for stenting. Arterial Closure: TR Summary: 1. Severe multi-vessel coronary artery disease -Acute on chronic 100% distal circumflex occlusion 95% stenosis and small proximal first diagonal 2. Normal intracardiac filling pressure 3. Successful PCI of distal circumflex with single drug-eluting stent (2.25 x 18 mm [place]). 4. Successful balloon angioplasty of small first diagonal with 2.0 balloon. Recommendations: To PCU for continued monitoring Loaded with clopidogrel 600 mg in cath Continue dual-antiplatelet therapy for at least one year Continue statin, and ASCVD risk factor modification Hemodynamics Rest Ao:: 89/56/57 Final Ao: 125/54/82 LV: 74/1 Recommendations Recommendations: PCI without planned CABG Specimens Specimens: None Radiation Exposure (mGy) 2467 Contrast (mls) 125 Fluids (cc crystalloids) Fluids (cc crystalloids): 600 Drains Drains: None Anesthesia Moderate Disposition PCU
[2019-02-26] MEDS ORDERED: SODIUM CHLORIDE 0.9% 1000ML 1,000 ML IV SCH (13:45)
[2019-02-26] MEDS: FLUTICASONE PROPIONATE NA SPR 16 GM BTL SCH (20:39)
[2019-02-26] MEDS: MONTELUKAST SODIUM 10 MG TABLET PO SCH (20:40)
[2019-02-26] MEDS: OPTH OP SCH (20:41)
[2019-02-26] MEDS: KETOTIFEN 0.025% OP SCH (20:41)
[2019-02-26] MEDS ORDERED: ATORVASTATIN 40 MG TAB PO SCH (21:00)
--- NOTE | 2019-02-26 22:47 | Hospitalist Progress Note ---
Date of Service February 26, 2019 Assessment & Plan (1) Non-ST elevation SD (NSTEMI): Chest pain improved s/p GI cocktail, however trop 12.0, serials pending EKG nonspecific ECHO completed" Left ventricular function is normal with no wall motion abnormlaites Cardiac cath was completed and COSTA stent was placed. Summary 1. Severe multi-vessel coronary artery disease -Acute on chronic 100% distal circumflex occlusion 95% stenosis and small proximal first diagonal 2. Normal intracardiac filling pressure 3. Successful PCI of distal circumflex with single drug-eluting stent (2.25 x 18 mm [place]). 4. Successful balloon angioplasty of small first diagonal with 2.0 balloon. Recommendations: To PCU for continued monitoring Loaded with clopidogrel 600 mg in cath Continue dual-antiplatelet therapy for at least one year Continue statin, and ASCVD risk factor modification Nitro, GI cocktail PRN CBC, PRP WNL CXR neg for acute VSS (2) Hepatitis C: Pt stated on medication for this today (3) Hypertension: continue home meds (4) Diabetes: SSI PRN Holding home PO meds given possible procedure A1c 8.8 will need to get this under myla control. Will defer to PCP. (5) Gastric ulcer: Hx of PUD No heparin bolus given due to this (6) Hyperlipidemia: continue home meds (7) COPD (chronic obstructive pulmonary disease): continue home meds (8) DVT prophylaxis: Heparin for DVT proph Subjective Patient is a pleasant 64 yo patient. He reports no new symptoms. He is currently chest pain free. Patient denies nausea, vomiting diarrhea. Review of Systems Review of Systems: Pertinent positives and negatives reviewed in HPI--all others negative Physical Exam Physical Exam: Constitutional: WD/WN, vitals as above Eyes: normal visual julian by confrontation and + anicteric sclerae Neck: normal visual inspection and trachea midline Respiratory: normal respiratory effort, lungs clear to auscultation Cardiovascular: Rate/Rhythm: regular rate and regular rhythm Gastrointestinal (Abdomen): Inspection/Auscultation: abdomen not distended Percussion/Palpation: abdomen soft; abdomen nontender Musculoskeletal: Head/Neck/Chest: normocephalic and head atraumatic negative for edema, peripheral pulses intact Skin: no rashes, warm and dry Neurologic: awake; not confused Speech / Cognition: normal speech Psychiatric: A+Ox3, euthymic affect Results & Data Vital Signs (Past 12 Hours) Vital Signs Temp Pulse Pulse Resp BP Pulse Ox 02/26/19 20:09 36.6 C 74 20 128/87 96 02/26/19 19:15 36.6 C 84 19 154/83 H 99 02/26/19 19:00 77 20 143/78 H 95 02/26/19 18:00 80 16 139/78 96 02/26/19 16:54 86 20 149/85 H 96 02/26/19 16:00 80 02/26/19 15:45 66 19 145/73 H 98 02/26/19 15:15 36.6 C 69 20 134/81 96 02/26/19 14:45 75 17 132/73 95 02/26/19 14:15 79 16 134/95 96 02/26/19 14:00 36.5 C 67 16 163/88 H 97 02/26/19 13:53 36.5 C 65 16 152/73 H 99 02/26/19 11:27 36.6 C 66 16 143/82 H 97 PG Care Time/CCT Total # of Minutes Spent Total Time Spent with Patient: Total time spent is greater than 50% in coordination of care (as documented) at patient's floor/unit and/or counseling patient:
[2019-02-27] MEDS: INSULIN ASPART 100 UNITS/ML 3 ML PEN SC SCH ×3 (08:14→16:43)
[2019-02-27] MEDS: AMLODIPINE BESYLATE 5 MG TAB PO SCH (08:16)
[2019-02-27] MEDS: lisinopriL 40 MG TAB PO SCH (08:16)
[2019-02-27] MEDS: UMECLIDINIUM BROMIDE INH SCH (08:17)
[2019-02-27] MEDS: CHLORTHALIDONE 25 MG TAB PO SCH (08:17)
[2019-02-27] MEDS: KETOTIFEN 0.025% OP SCH (08:18)
[2019-02-27] MEDS: OPTH OP SCH (08:18)
[2019-02-27] MEDS: GLUCOSE 10 TABS/TUBE PO SCH (08:27)
[2019-02-27] MEDS ORDERED: CLOPIDOGREL BISULFATE 75 MG TAB PO SCH (09:00)
[2019-02-27] MEDS ORDERED: ASPIRIN 81 MG ECTAB PO SCH (09:00)
--- NOTE | 2019-02-27 09:37 | Cardiology Progress Note ---
Date of Service February 27, 2019 Assessment & Plan (1) Non-ST elevation [place] (NSTEMI): --post PCI to distal circumflex with single drug-eluting stent (2.25 x 18 mm [place]) and balloon angioplasty of first diagonal 2. Hypertension 3. Dyslipidemia 4. Type 2 diabetes Patient admitted with NSTEMI and yesterday had cardiac cath which showed multivessel coronary disease. He underwent successful PCI of distal circumflex and balloon angioplasty of first diagonal. Currently chest pain free. Hemod ynamically and electrically stable. On exam well perfused without signs of heart failure. Troponin peaked at 16.3. Echo with normal LV systolic function. Continue dual antiplatelet therapy for minimum of one year post event. Continue high intensity statin. Recommend starting beta lanette. Continue LEYDA inhibitor. OK to discharge from cardiac standpoint today. Will need cardiology followup in 2-3 weeks. Subjective Patient feeling well today. No recurrent chest pain. No shortness of breath. No issues at right radial access site. Cardiac cath yesterday with severe multivessel coronary disease including acute on chronic 100% distal circumflex occlusion and 95% stenosis of small proximal first diagonal. He underwent successful PCI of distal circumflex with single COSTA and successful balloon angioplasty of first diagonal (vessel too small for stenting). Echo with normal LV systolic function and mild basal posterior hypokinesis. Troponin peaked at 16.3 Tele reviewed-- no events Review of Systems Review of Systems: All systems reviewed & are unremarkable except as noted in HPI & below Physical Exam Physical Exam: General: No acute distress, comfortable. HEENT: Head is normal. PERRLA. EOMI. Sclerae anicteric. Ears, nose and throat unremarkable. Mucous membranes moist. Neck: Normal carotid upstrokes, no bruits. No appreciable JVD. Lungs: Clear to auscultation bilaterally without rales, rhonchi or wheezes. Cardiac: Regular rate and rhythm. S1-S2 normal. No appreciable murmur, gallop or rub. Extremities/vascular: --Well perfused. No peripheral edema. --Right radial access site without hematoma. Distal pulse and sensation intact Skin: No rash or abnormal lesions. Normal turgor. Neurologic: Nonfocal Psychiatric: Affect appropriate. Alert and oriented. Results & Data Vital Signs (Past 12 Hours) Vital Signs Temp Pulse Resp BP Pulse Ox 02/27/19 07:14 36.5 C 76 24 142/92 H 92 02/27/19 03:20 36.6 C 69 20 131/73 95 02/26/19 23:16 36.5 C 69 20 138/84 95 Laboratory Results Laboratory Results - last 24 hr 02/26/19 02/26/19 02/26/19 11:26 11:34 16:39 POC Glucose 170 H 204 H Troponin I 12.400 H* 02/26/19 02/27/19 20:09 07:06 POC Glucose 185 H 192 H Troponin I PG Care Time/CCT Total # of Minutes Spent Total Time Spent with Patient: Total time spent is greater than 50% in coordination of care (as documented) at patient's floor/unit and/or counseling patient:
[2019-02-27] MEDS ORDERED: METOPROLOL SUCC 50MG EXT REL TAB PO SCH (10:00)
[2019-02-27] MEDS ORDERED: ZEPATIER PO SCH (12:00)
[2019-02-27] MEDS: ZEPATIER PO SCH (12:18)
--- NOTE | 2019-03-10 22:20 | Discharge Summary ---
Date of Service February 27, 2019 Admission HPI Per Admitting Provider 64 y/o M c/o chest pain. Pt states he woke around 230a this morning with chest pain that was nonradiating. He massaged his chest and it resolved. He was able to go back to sleep. He woke around 430a to go to work. He had breakfast without issue. He was at work when he has return of chest pain, only it was less sharp than it had been earlier in the morning. He was working in a seated position at that time. 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 While he was walking there, his pain continued to worsen. He was given aspirin and nitro there and sent to the ED. Pt states he has had chest pain prior, but it was always related to reflux. Pt notes JACOB intermittently over the last month that is new for him. In the ED, pt was given pepcid and GI cocktail and pain is mostly resolved. He states he does still have a slight amount of L sided chest pain at present, but much better than prior. ED physician spoke with Dr. Snell who reviewed pt's chart and EKG. He prefers to start heparin and trend trops for now. t/c union laborer if pt's pain returns. Principal Diagnosis NSTEMI Discharge Exam Constitutional: WD/WN, vitals as above Eyes: normal visual julian by confrontation and + anicteric sclerae Neck: normal visual inspection and trachea midline Respiratory: normal respiratory effort, lungs clear to auscultation Cardiovascular: Rate/Rhythm: regular rate and regular rhythm Gastrointestinal (Abdomen): Inspection/Auscultation: abdomen not distended Percussion/Palpation: abdomen soft; abdomen nontender Musculoskeletal: Head/Neck/Chest: normocephalic and head atraumatic negative for edema, peripheral pulses intact Skin: no rashes, warm and dry Neurologic: awake; not confused Speech / Cognition: normal speech Psychiatric: A+Ox3, euthymic affect Discharge Data Allergies Allergy/AdvReac Type Severity Reaction Status Date / Time No Known Allergies Allergy Unverified 02/25/19 11:40 Consultations 02/25/19 13:51 ED Decision to Admit Stat 09/23/19 16:10 Consult Cardiology Routine Procedures Performed Operation Date: 02/26/19 12:00 Actual Procedures s Cineradiography w/Routine Exam - Pantera Odom MD p Cath, Left with Cors and Vent - Pantera Odom MD s POBA SGL Vessel - Pantera Odom MD s Drug Eluting Stent SGl Vessel - Pantera Odom MD Ordered Studies 02/26/19 07:06 CL Cath Imgs for PACS use only Routine Hospital Course (1) Non-ST elevation [place] (NSTEMI): Chest pain improved s/p GI cocktail, however trop 12.0, serials pending EKG nonspecific ECHO completed" Left ventricular function is normal with no wall motion a bnormlaites Cardiac cath was completed and COSTA stent was placed. Summary 1. Severe multi-vessel coronary artery disease -Acute on chronic 100% distal circumflex occlusion 95% stenosis and small proximal first diagonal 2. Normal intracardiac filling pressure 3. Successful PCI of distal circumflex with single drug-eluting stent (2.25 x 18 mm [place]). 4. Successful balloon angioplasty of small first diagonal with 2.0 balloon. Recommendations: To PCU for continued monitoring Loaded with clopidogrel 600 mg in cath Continue dual-antiplatelet therapy for at least one year Continue statin, and ASCVD risk factor modification Nitro, GI cocktail PRN CBC, PRP WNL CXR neg for acute VSS On day of discharge: On plavix, asa, metprolol, and statin. (2) Hepatitis C: Pt stated on medication for this today (3) Hypertension: continue home meds (4) Diabetes: SSI PRN Holding home PO meds given possible procedure A1c 8.8 will need to get this under myla control. Will defer to PCP. (5) Gastric ulcer: Hx of PUD No heparin bolus given due to this (6) Hyperlipidemia: continue home meds (7) COPD (chronic obstructive pulmonary disease): continue home meds (8) DVT prophylaxis: Heparin for DVT proph Total Time Total Time Spent Total Time Spent (In Minutes): 32 Total Time Includes: Examination of the Patient, Discharge Planning and Medication Reconciliation Discharge Plan Discharge Items [facility] Reason For Visit: CHEST PAIN Discharge Diagnosis: chest pain Activity: Resume your previous activity Non-emergency contact: Primary Care Provider Call non-emergency contact if: you have any medication questions Follow-up/Referrals: [facility] [Primary Care Provider] - Diet: Regular Addtl Attending Provider Instructions: You were seen for a heart attack. A drug eluting stent was placed. You will require at least 12 months of plavix (clopidogrel). If you miss a dose, you put yourself at risk of your stent closing and causing another heart attack. Pending Studies at Discharge: No Stand-Alone Forms: My [facility] Skilled Items Patient informed of condition?: No Discharge Level of Care: Other Communicable Disease: No Discharge Prognosis: Stable Lines: None Urinary Catheter: No Medications and DC Order Prescriptions: New metoprolol succinate 50 mg Tablet Extended Release 24 Hr 50 mg PO QAM Qty: 30 RF: 0 clopidogrel 75 mg Tablet 75 mg PO QAM Qty: 30 RF: 0 aspirin [Ecotrin Low Strength] 81 mg Tablet,Delayed Release (Dr/Ec) 81 mg PO QAM Qty: 0 RF: 0 nitroglycerin [Nitrostat] 0.4 mg Tablet, Sublingual 0.4 mg sublingual UD PRN (Reason: chest pain) Qty: 0 RF: 0 rosuvastatin 10 mg tablet 10 mg PO HS Qty: 30 RF: 0 Continued ketotifen fumarate 0.025 % (0.035 %) Drops 1 drp OPHTHALMIC (EYE) BID RF: 0 glipizide 10 mg Tablet 10 mg PO BID RF: 0 chlorthalidone 50 mg Tablet 50 mg PO DAILY RF: 0 amlodipine 10 mg Tablet 10 mg PO DAILY RF: 0 metformin 1,000 mg Tablet 1,000 mg PO BID RF: 0 Humulin R Regular U-100 Insuln 100 unit/mL Solution 1 sliding scale dose SUBCUT UD RF: 0 glucose 4 gram Tablet,Chewable 4 g PO DAILY RF: 0 montelukast 10 mg Tablet 10 mg PO PM RF: 0 lisinopril 40 mg Tablet 40 mg PO DAILY RF: 0 fluticasone propionate [Flonase Allergy Relief] 50 mcg/actuation [place],Suspension 2 spray INTRANASAL HS RF: 0 levalbuterol tartrate [Xopenex HFA] 45 mcg/actuation Hfa Aerosol Inhaler 2 inh INHALATION Q6H PRN (Reason: Shortness Of Breath Or Wheezing) RF: 0 Incruse Ellipta 62.5 mcg/actuation Blister With Device 1 inh INHALATION DAILY RF: 0 Zepatier 50-100 mg Tablet 1 tab PO DAILY RF: 0 Discontinued atorvastatin 10 mg Tablet 10 mg PO HS RF: 0 Discharge Orders: Discharge Order (Routine); Ordered 02/27/19 Ordered By: Jose Vela/Other Patient Handouts: Heart Attack Dc Admission Data Admit Date/Time: 02/25/19 14:32 Attending Provider: Jose Welch Admit Provider: Manisha Meneses Primary Care Provider: Megan POLLACK Other Providers: Av Snell Other Interventions: Discharge Summary Assessment (RN) Last Done: 02/27/19 15:48 DC Date/Time DO NOT enter until pt leaves facility: 02/27/19 17:15
== END 2019-02-27 17:15 | DRG 247 ==
LOC: ED 10:59 → SUATTDRO 14:32 → 2E 14:32
DX: E11.9 Type 2 diabetes mellitus without complications; Z79.899 Other long term (current) drug therapy; Z79.4 Long term (current) use of insulin; E78.00 Pure hypercholesterolemia, unspecified; Z87.891 Personal history of nicotine dependence; J44.9 Chronic obstructive pulmonary disease, unspecified; I21.4 Non-ST elevation (NSTEMI) myocardial infarction; I25.10 Atherosclerotic heart disease of native coronary artery without angina pectoris; B19.20 Unspecified viral hepatitis C without hepatic coma; I10 Essential (primary) hypertension; K21.9 Gastro-esophageal reflux disease without esophagitis; E78.5 Hyperlipidemia, unspecified; Z87.11 Personal history of peptic ulcer disease